=== PATIENT | female | born 1995 | race African-American/Black ===

== ENCOUNTER 2025-01-10 23:33 | Emergency (ER) | payer MEDICAID, SELFPAY ==
[2025-01-10 23:39] VITALS: BP 141/81; PULSE 64; O2SAT 96; BMI 33.9
[2025-01-10 23:44] VITALS: BP 141/91; PULSE 75; RESP 16; TEMP 36.7; O2SAT 98
--- NOTE | 2025-01-11 01:46 | ED_ITS ---
HPI - General Adult General Chief complaint: Wound/Laceration Stated complaint: wound check PD Time Seen by Provider: 01/11/25 01:41 Source: patient and police Mode of arrival: ambulatory Limitations: no limitations History of Present Illness ED Provider: Syed CARL HPI narrative: The patient is a 29-year-old female presenting to the ED by ambulance in police custody for evaluation of a chronic right lateral ankle wound. Patient reports the wound has been present there for multiple years after she scratched it in a swimming pool. The patient's abrasion developed into cellulitis, followed by multiple surgeries including a skin graft, and then a wound VAC. The patient reports she is currently being managed by a home care wound nurse who applies daily dressings. The patient reports she has chronic pain from the wound for which she has been prescribed multiple medications throughout the course of her wound. The patient presents with the wound uncovered, reporting severe pain. Related Data Allergies Allergy/AdvReac Type Severity Reaction Status Date / Time vancomycin Allergy Hives Verified 01/10/25 23:54 Review of Systems Review of Systems: Yes all other systems are reviewed and are negative [facility] Social History Social History Smoked in Last 30 Days: No Use of substances other than those prescribed or required for medical reasons: Yes Substance Use Type: Marijuana Substance Use Frequency: Occasionally Last Used Substance: Days (ago) Advance Directives: No Advance Directives Information Provided: Yes Patient : No Physical Exam ED Vital Signs: Vital Signs - 24 hr 01/10/25 23:44 Temperature 98.0 F Pulse Rate 75 Respiratory Rate 16 Blood Pressure 141/91 H Pulse Oximetry 98 Oxygen Delivery Method Room Air BMI result Body Mass Index 33.9 CONSTITUTIONAL: The patient appears non-toxic, well nourished and in no acute distress. Vital signs as documented. HEAD: Atraumatic, normocephalic. EYES: EOMs grossly intact, pupils equal, conjunctiva clear, no exudate. ENT: Nares patent, no discharge. Airway patent, no audible stridor, visible mucosa is pink and moist without noted lesions. NECK: trachea is midline, no obvious masses or gross abnormalities. CHEST: Symmetric movement, normal appearance. LUNGS: Non-labored work of breathing. CARDIAC: No evidence of hypoperfusion. ABDOMEN: Nondistended, no obvious injury. : Deferred. EXTREMITIES: Moves all extremities spontaneously without reported pain. No obvious injury or deformity noted. NEURO: Alert and oriented x3, CN II-XII appear grossly intact. Cerebellar Functioning grossly intact. Speech clear and appropriate. SKIN: Warm, dry, color appropriate. There is a 10 cm x 2 cm linear wound noted to the lateral right ankle with well-formed, mostly dry eschar, without surrounding cellulitis or active drainage. No other rashes or lesions noted. Medications Administered Discontinued Medications Generic Name Dose Route Start Last Admin Trade Name Estephania PRN Reason Stop Dose Admin Acetaminophen 975 mg 01/11/25 01:53 01/11/25 02:00 Acetaminophen 325 Mg Tablet PO 01/11/25 01:54 975 mg ONCE ONE Administration Ibuprofen 600 mg 01/11/25 01:53 01/11/25 02:00 Ibuprofen 600 Mg Tablet PO 01/11/25 01:54 600 mg ONCE ONE Administration Medical Decision Making Medical Decision Making MDM Narrative: 2:12 AM 01/11/2025 (Linwood CARL): The patient is a 29-year-old female presenting to the ED by ambulance in police custody for evaluation of a chronic right lateral ankle wound. Patient reports the wound has been present there for multiple years after she scratched it in a swimming pool. The patient's abrasi on developed into cellulitis, followed by multiple surgeries including a skin graft, and then a wound VAC. The patient reports she is currently being managed by a home care wound nurse who applies daily dressings. The patient reports she has chronic pain from the wound for which she has been prescribed multiple medications throughout the course of her wound. The patient presents with the wound uncovered, reporting severe pain. The patient's exam demonstrates a 10 cm x 2 cm linear wound with well-appearing, mostly dry eschar, without foul smell, active drainage, or surrounding erythema/cellulitis. Distal CSM is intact. 2+ DP/PT pulses. The patient is afebrile, normotensive, with out tachycardia tachypnea, or hypoxia, the patient's wound does not appear actively infected, no indication for antibiotics. The patient's wound was dressed with Xeroform and covered by a clean dry dressing. The patient will be treated with ibuprofen and Tylenol for her chronic pain. Patient will be discharged back to police custody, with instructions to follow up with her wound care nurse upon release from police custody. Admission/Observation Consideration of admission/observation: Escalation of care including admission/observation considered External Record Review External record reviewed: Outpatient record Prescription Management I considered prescription management with: Pain Medication and Antibiotic Discharge Plan Discharge Clinical Impression: Encounter for wound re-check Patient Disposition: Home, Self-Care Instructions: Chronic Wounds (ED) Additional Instructions: Thank you for choosing [facility]'s Emergency Department for your care today. Thankfully your exam and vital signs today show no evidence of an acute infection in your wound. At this time there is no indication for admission to the hospital or continued ED observation, and it is safe for you to be discharged. Your chronic wound pain was treated with anti-inflammatories and a dressing was placed on your wound to reduce the risk of developing an infection. Please follow up with your wound care team upon your return home, and please follow up with your primary care physician for re-evaluation, additional management of your chronic pain, and continued preventative care. If you do not have a primary care physician, please call the [facility] at [phone] to establish a new primary care physician. While waiting to establish your new primary care physician, you can call our [facility] at [phone] for non-emergency needs. Please return to the emergency department if you develop a severe or sudden change in your symptoms, a fever over 100.4 that does not improve with Tylenol or Ibuprofen, recurrent vomiting, or any other new or worsening symptoms or concerns. Referrals: [place] [Primary Care Provider, Primary Care] Clinical Impression: Encounter for wound re-check Print Language: Ivorian
[2025-01-11 02:38] VITALS: BP 0/0; PULSE 0; RESP 18; TEMP -17.7; TEMP 0; O2SAT 0
== END 2025-01-11 02:40 | disposition home or self-care (01) ==
PROVIDERS: Emergency Provider Emergency Medicine; PCP Dentist General Practice
DX: S91.001D Unspecified open wound, right ankle, subsequent encounter (principal); X58.XXXD Exposure to other specified factors, subsequent encounter; Z88.1 Allergy status to other antibiotic agents
CPT/HCPCS: 99283; 99284